=== PATIENT | male | born 1990 | race African-American/Black ===

== ENCOUNTER 2017-10-20 11:05 | Emergency (ER) | payer OTHER, MEDICAID ==
[2017-10-20] MEDS: BACTRIM 160MG/800MG DS TAB PO (12:22)
[2017-10-20] MEDS: NORCO, ANEXSIA 5/325MG TABLET (HYDROcodone/ACETAMINOPHEN) PO (12:22)
== END 2017-10-20 12:28 | disposition home or self-care (01) ==
LOC: M ED 11:05
DX: L02.01 Cutaneous abscess of face (principal); F17.210 Nicotine dependence, cigarettes, uncomplicated
CPT/HCPCS: 87205

== ENCOUNTER 2019-02-10 16:52 | Emergency (ER) | payer MEDICAID, OTHER, SELFPAY ==
[~2019-02-10] VITALS: Ht 172.7 cm; Wt 67.0 kg
[~2019-02-10 16:52] MED LIST: BACT800T5 PO
[2019-02-10 16:53] VITALS: BP 120/56
[2019-02-10] MEDS ORDERED: BACT800T5 PO (17:31)
== END 2019-02-10 17:36 | disposition home or self-care (01) ==
LOC: M ED 16:52
DX: L02.01 Cutaneous abscess of face (principal)

== ENCOUNTER 2019-06-19 13:23 | Emergency (ER) | payer MEDICAID, OTHER ==
[~2019-06-19] VITALS: Ht 172.7 cm; Wt 68.2 kg
[2019-06-19] MEDS ORDERED: KETOROLAC TROMETHAMINE 10 MG TAB PO ONE (15:00)
[2019-06-19 15:49] LABS: BASO % 0.4 % (0.0-1.0); EOS % 0.4 % (0.0-3.0); HEMATOCRIT 46.9 % (42.0-52.0); HEMOGLOBIN 15.7 g/dl (13.5-17.5); LYMPH # 1.7 10^3/uL (1.5-5.0); LYMPH % 30.5 % (24.0-44.0); MEAN CORPUSCULAR HEMOGLOBIN 32.8 pg (27.0-33.0); MEAN CORPUSCULAR HGB CONC 33.5 g/dl (32.0-36.5); MEAN CORPUSCULAR VOLUME 97.9 fl (80.0-96.0); MONO # 0.4 10^3/uL (0.0-0.8); MONO % 7.1 % (0.0-5.0); NEUTROPHILS # 3.5 10^3/uL (1.5-8.5); NEUTROPHILS % 61.4 % (36.0-66.0); PLATELET COUNT, AUTOMATED 239 10^3/uL (150-450); RED BLOOD COUNT 4.79 10^6/uL (4.30-6.10); WHITE BLOOD COUNT 5.6 10^3/uL (4.0-10.0)
[2019-06-19 15:59] LABS: INR 1.07; PROTHROMBIN TIME 13.6 SECONDS (11.8-14.0)
[2019-06-19 16:00] LABS: PARTIAL THROMBOPLASTIN TIME 28.6 SECONDS (25.0-38.4)
[2019-06-19 16:08] LABS: ERYTHROCYTE SEDIMENTATION RATE 3 mm/hr (0-15)
[2019-06-19 16:17] LABS: ALBUMIN 4.2 GM/DL (3.2-5.2); ALT/SGPT 19 U/L (12-78); BILIRUBIN,DIRECT 0.2 MG/DL (0.0-0.2); BILIRUBIN,TOTAL 0.7 MG/DL (0.2-1.0); BLOOD UREA NITROGEN 8 MG/DL (7-18); CALCIUM LEVEL 9.7 MG/DL (8.5-10.1); CARBON DIOXIDE LEVEL 33 MEQ/L (21-32); CHLORIDE LEVEL 105 MEQ/L (98-107); CREATININE FOR GFR 0.84 MG/DL (0.70-1.30); GLOMERULAR FILTRATION RATE > 60.0 (>60); GLUCOSE, FASTING 105 MG/DL (70-100); POTASSIUM SERUM 4.7 MEQ/L (3.5-5.1); SODIUM LEVEL 139 MEQ/L (136-145)
[2019-06-19] MEDS ORDERED: KETO10TAB PO (16:38)
[2019-06-19 16:43] VITALS: BP 136/78
--- NOTE | 2019-06-19 16:45 | REP ---
Pelvis left hip: Three views. History: Pain, decreased range of motion. No known injury. Findings: AP view of the pelvis and AP and frog-leg views of the left hip are presented. Femoral heads are smooth and rounded. There is a tiny accessory ossicle adjacent to the superior acetabulum. Joint spaces are preserved. Head neck junction is unremarkable. No bony destructive or erosive change seen. Impression: No acute abnormality. Electronically Signed by Harley Spencer MD 06/19/2019 04:58 P
== END 2019-06-19 16:47 | disposition home or self-care (01) ==
LOC: M ED 13:23
DX: M70.62 Trochanteric bursitis, left hip (principal); F17.210 Nicotine dependence, cigarettes, uncomplicated

== ENCOUNTER 2019-08-01 10:52 | Emergency (ER) | payer OTHER ==
[~2019-08-01] VITALS: Ht 172.7 cm; Wt 68.2 kg
[~2019-08-01 10:52] MED LIST changes: +KETO10TAB PO
[2019-08-01 10:53] VITALS: BP 135/62
[2019-08-01] MEDS ORDERED: DOXY100C37 PO (11:09)
[2019-08-01] MEDS ORDERED: LIDOCAINE 1% MDV 20ML VIAL SC ONE (11:15)
== END 2019-08-01 11:44 | disposition home or self-care (01) ==
LOC: M ED 10:52
DX: L73.2 Hidradenitis suppurativa (principal); F17.210 Nicotine dependence, cigarettes, uncomplicated

== ENCOUNTER 2019-08-06 09:22 | Emergency (ER) | payer OTHER ==
[~2019-08-06] VITALS: Ht 172.7 cm; Wt 68.2 kg
[~2019-08-06 09:22] MED LIST changes: +DOXY100C37 PO
[2019-08-06 09:23] VITALS: BP 150/86
[2019-08-06] MEDS ORDERED: FLON1SPR NARES (09:50)
[2019-08-06] MEDS ORDERED: VENTAER INH (09:50)
[2019-08-06] MEDS ORDERED: PSEU120T19 PO (09:52)
== END 2019-08-06 10:13 | disposition home or self-care (01) ==
LOC: M ED 09:22
DX: J06.9 Acute upper respiratory infection, unspecified (principal); L70.9 Acne, unspecified; F17.200 Nicotine dependence, unspecified, uncomplicated; Z79.2 Long term (current) use of antibiotics

== ENCOUNTER 2019-10-17 12:04 | Emergency (ER) | payer OTHER ==
[~2019-10-17] VITALS: Ht 172.7 cm; Wt 71.9 kg
[~2019-10-17 12:04] MED LIST changes: +FLON1SPR NARES; +PSEU120T19 PO; +VENTAER INH
--- NOTE | 2019-10-17 12:40 | REP ---
Chest x-ray: Two views. History: Short of breath and cough. No comparison study. Findings: The lungs are well inflated and free of infiltrate. The pleural angles are sharp. Cardiomediastinal silhouette is unremarkable. No bony abnormality. Pulmonary vasculature is not increased. Impression: Negative chest x-ray. Electronically Signed by Harley Spencer MD 10/17/2019 12:31 P
[2019-10-17 13:18] LABS: INFLUENZA A AMPLIFICATION NEGATIVE (NEGATIVE); INFLUENZA B AMPLIFICATION POSITIVE (NEGATIVE)
[2019-10-17] MEDS ORDERED: IBUPROFEN 800 MG TAB PO ONE (14:45)
[2019-10-17 14:59] VITALS: BP 133/75
== END 2019-10-17 15:01 | disposition home or self-care (01) ==
LOC: M ED 12:04
DX: J11.1 Influenza due to unidentified influenza virus with other respiratory manifestations (principal); J45.909 Unspecified asthma, uncomplicated; F17.200 Nicotine dependence, unspecified, uncomplicated